=== PATIENT | male | born 2000 | race Caucasian/White ===

== ENCOUNTER 2018-04-05 21:07 | Emergency (ER) | payer OTHER ==
[2018-04-05 21:32] VITALS: BP 143/74; PULSE 79; RESP 18; TEMP 98.5
[2018-04-05] MEDS ORDERED: LIDOCAINE 1% INJ 10MG/ML (20 ML MDV) SQ STA (22:22)
[2018-04-05] MEDS ORDERED: DIPH,PERTUS(ACELL)TETVAC-LF 0.5 ML VIAL IM ONE (22:34)
--- NOTE | 2018-04-05 22:51 | ED ---
General Adult HPI - General Chief complaint: Wound/Laceration Stated complaint: lip laceration Source: patient, RN notes reviewed, old records reviewed Mode of arrival: ambulatory Limitations: no limitations - History of Present Illness Initial comments: 18-year-old male patient presents in ED after being struck in face with a baseball. 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 The pt presents with a 2cm non open lac extending from the apex of his lip to his internal mucosa. Pt denies LOC, pain in jaw, pain in neck, use of blood thinners, hx of personal or familial clotting disease. Patient denies fall or any other injury sustained. Patient denies headache, changes in vision.patient does not know last tetanus immunization up-to-date. Systemic: Pt denies fatigue, myalgia, fever/chills, rash. Pt denies weakness, night sweats, weight loss. Neuro: Pt denies headache, visual disturbances, syncope or pre-syncope. HEENT: Pt denies ocular discharge or irritation, otalgia, rhinorrhea, pharyngitis or notable lymphadenopathy. Cardiopulmonary: Pt denies chest pain, SOB, heart palpitations, dyspnea on exertion. Abdominal/GI: Pt denies abdominal pain, n/v/d. : Pt denies dysuria, burning w/ urination, frequency/urgency. Denies new onset urinary or bowel incontinence. MSK: Pt denies myalgia, loss of strength or function in extremities. - Related Data Allergies Allergy/AdvReac Type Severity Reaction Status Date / Time No Known Allergies Allergy Verified 04/05/18 21:32 Review of Systems ROS Statement: Those systems with pertinent positive or pertinent negative responses have been documented in the HPI. ROS Other: All systems not noted in ROS Statement are negative. Past Medical History Past Medical History: No Reported History History of Any Multi-Drug Resistant Organisms: None Reported Past Surgical History: No Surgical Hx Reported Past Psychological History: No Psychological Hx Reported Smoking Status: Never smoker Past Alcohol Use History: Rare Past Drug Use History: None Reported General Exam - General Exam Comments Initial Comments: Constitutional: NAD, AOX3, Pt has pleasant affect. HEENT: NC/AT, trachea midline, neck supple, no lymphadenopathy. Posterior pharynx non erythematous, without exudates. External ears appear normal, without discharge. Mucous membranes moist. Eyes PERRLA, EOM intact. There is no scleral icterus. No pallor noted. full oral exam conducted. No broken teeth. No injuries to come oropharynx. 2 cm open laceration noted midline and lower lip from apex extending into the intraoral mucosa. Cardiopulmonary: RRR, no murmurs, rubs or gallops, no JVD noted. Lungs CTAB in anterior and posterior rodriguez. No peripheral edema. Abdominal exam: Abdomen soft and non-distended. Abdomen non-tender to palpation in all 4 quadrants. Bowel sounds active in LLQ. No hepatosplenomegaly. Neuro: CN II-XII intact. no focal deficit. Full range of motion of extremities. Sensation intact. No cervical spinal tenderness. Limitations: no limitations Course Vital Signs 04/05/18 21:30 Temperature 98.5 F Pulse Rate 79 Respiratory 18 Rate Blood Pressure 143/74 O2 Sat by Pulse 99 Oximetry Procedures - Laceration Laceration #1 Consent Obtained: verbal consent Time Out Performed: Yes Indication: laceration Site: lip Size (cm): 2 Description: linear Depth: simple, single layer Type of Sutures: nylon Size of Sutures: 5-0 Number of Sutures: 1 Technique: simple, interrupted Medical Decision Making - Medical Decision Making 18-year-old male patient presents in ED after being struck in face with a baseball. 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 The pt presents with a 2cm non open lac extending from the apex of his lip to his internal mucosa. neurological assessment within normal limits. No cranial nerve deficit. No cervical spinal tenderness. Patient had no loss of consciousness. Patient uses no blood thinners. Physical exam revealed no broken teeth, gum or pharynx injury, 2 cm laceration on lower lip extending from apex to internal mucosa. Laceration is not open. 1 Ethilon suture placed at apex. Patient to return in 3 days to have the suture removed. the rest of this laceration well healed on its own. Pt tetanus updated. Patient to return if any signs symptoms develop including discharge,fever/chills, chest pain, shortness breath or any other symptoms. patient to follow PCP in 1-2 days. Case discussed with Dr. Gomez. Disposition Clinical Impression: Laceration Disposition: HOME SELF-CARE Condition: Good Instructions: Laceration (DC) Additional Instructions: Patient to adhere to previously discussed treatment plan and will take medication(s) as directed. Patient to follow up with PCP in 1-2 days. Patient to return to ED if symptoms do not improve. Is patient prescribed a controlled substance at d/c from ED?: No Referrals: Toro Benítez MD [Primary Care Provider] - 1-2 days Time of Disposition: 22:53
== END 2018-04-05 23:15 | disposition home or self-care (01) ==
LOC: SUPCPDRO 21:07 → EC 21:07
DX: S01.511A Laceration without foreign body of lip, initial encounter (principal); Z23 Encounter for immunization; W21.03XA Struck by baseball, initial encounter; Y92.89 Other specified places as the place of occurrence of the external cause
CPT/HCPCS: 90715; 99283; 12011; 90471; J2001